=== PATIENT | female | born 1965 | race Two or more races ===

== ENCOUNTER 2016-11-24 12:32 | Emergency (ER) | payer OTHER ==
[~2016-11-24] VITALS: Ht 160 cm; Wt 117.9 kg
[2016-11-24] MEDS ORDERED: PANTOPRAZOLE 40 MG/10 ML VIAL IV STA (13:05)
[2016-11-24] MEDS ORDERED: SODIUM CHLORIDE 0.9% 500 ML IVB ONE (13:05)
[2016-11-24] MEDS ORDERED: MORPHINE SULF INJ 2 MG/ML SYRINGE 1ML ONE (13:08)
[2016-11-24] MEDS ORDERED: ONDANSETRON HCL 4 MG/2 ML VIAL IV ONE (13:15)
[2016-11-24] MEDS ORDERED: MORPHINE SULFATE 4 MG/ML SYRG IV ONE (13:15)
[2016-11-24 14:13] LABS: Basophils # (auto) 0 uL; Basophils % (auto) 0.5 % (0.0-2.0); Eosinophils # (auto) 0.1 uL; Eosinophils % (auto) 1.7 % (0.0-7.0); Hemoglobin 14.1 g/dL (12.2-16.2); Lymphocytes # (auto) 1.3 uL; Lymphocytes % (auto) 17.8 % (10.0-50.0); Mean Corpuscular Hemoglobin 30.4 pg (28.0-32.0); Mean Corpuscular Hgb Conc. 33.7 g/dL (32.0-36.0); Mean Corpuscular Volume 90.4 fL (80.0-100.0); Mean Platelet Volume 7.9 fL (7.4-10.4); Monocytes # (auto) 0.4 uL; Monocytes % (auto) 5.3 % (0.0-12.0); Neutrophils # (auto) 5.4 uL; Neutrophils % (auto) 74.7 % (37.0-80.0); Platelet Count (auto) 231 10^3/uL (140-450); Red Cell Distribution Width 15.8 % (11.6-16.0); White Blood Cell 7.3 10^3/uL (4.4-10.8)
[2016-11-24 14:28] LABS: Albumin 3.2 g/dL (3.4-5.0); Amylase 48 U/L (25-115); Anion Gap 10 (5-15); Aspartate Aminotransferase 35 U/L (15-37); BUN/Creatinine Ratio 14.8; Blood Urea Nitrogen 17 mg/dL (7-18); Calcium 8.4 mg/dL (8.5-10.1); Carbon Dioxide 21 mmol/L (21-32); Chloride 112 mmol/L (98-107); GFR African American 63 mL/min; GFR Non-African American 52 mL/min; Glucose 156 mg/dL (74-106); Magnesium 2.1 mg/dL (1.6-2.6); Potassium 3.8 mmol/L (3.5-5.1); Sodium 143 mmol/L (136-145)
[2016-11-24 14:33] LABS: Alkaline Phosphatase 97 U/L (45-117); Bilirubin, Total 0.4 mg/dL (0.2-1.0); Total Protein 7.4 g/dL (6.4-8.2)
[2016-11-24 15:57] VITALS: BP 146/77
== END 2016-11-24 15:56 | disposition home or self-care (01) ==
LOC: ER 12:32
DX: R10.84 Generalized abdominal pain (principal); Z90.49 Acquired absence of other specified parts of digestive tract
CPT/HCPCS: 36415; 74176; 80053; 82150; 83690; 83735; 84484; 85025; 93005; 94761; 96361; 96374; 96375; 99285; C9113; J2270; J2405; J7030

== ENCOUNTER 2017-06-27 07:08 | Emergency (ER) | payer OTHER ==
[~2017-06-27] VITALS: Ht 162.6 cm; Wt 136.1 kg
[2017-06-27 07:38] VITALS: BP 130/60
[2017-06-27 07:54] LABS: Basophils # (auto) 0.1 uL; Eosinophils # (auto) 0.1 uL; Eosinophils % (auto) 2.9 % (0.0-7.0); Hematocrit 45.7 % (36.0-46.0); Hemoglobin 15.6 g/dL (12.2-16.2); Lymphocytes # (auto) 1.6 uL; Lymphocytes % (auto) 31.1 % (10.0-50.0); Mean Corpuscular Hemoglobin 31.8 pg (28.0-32.0); Mean Corpuscular Hgb Conc. 34.1 g/dL (32.0-36.0); Mean Corpuscular Volume 93.1 fL (80.0-100.0); Monocytes # (auto) 0.3 uL; Monocytes % (auto) 5.8 % (0.0-12.0); Neutrophils % (auto) 59.2 % (37.0-80.0); Nucleated Red Blood Cells % 0.1 %; Platelet Count (auto) 244 10^3/uL (140-450); Red Blood Cells 4.91 10^6/uL (4.0-5.20); Red Cell Distribution Width 13.8 % (11.8-14.3); White Blood Cell 5.1 10^3/uL (4.4-10.8)
[2017-06-27 08:14] LABS: Albumin 3.6 g/dL (3.4-5.0); BUN/Creatinine Ratio 16.2; Bilirubin, Total 0.6 mg/dL (0.2-1.0); Calcium 8.8 mg/dL (8.5-10.1); Potassium 4.2 mmol/L (3.5-5.1); Total Protein 8.2 g/dL (6.4-8.2)
== END 2017-06-27 09:33 | disposition home or self-care (01) ==
LOC: ER 07:08
DX: R10.84 Generalized abdominal pain (principal); Z90.49 Acquired absence of other specified parts of digestive tract
CPT/HCPCS: 36415; 74176; 80053; 83690; 85025; 93005

== ENCOUNTER 2019-01-27 11:13 | Inpatient (IN) | payer OTHER ==
[~2019-01-27] VITALS: Ht 162.6 cm; Wt 139.2 kg
[2019-01-27] MEDS ORDERED: ONDANSETRON HCL 4 MG/2 ML VIAL IV ONE (11:30)
[2019-01-27 11:44] LABS: Basophils # (auto) 0.1 uL; Basophils % (auto) 0.6 % (0.0-2.0); Eosinophils # (auto) 0 uL; Eosinophils % (auto) 0.4 % (0.0-7.0); Hematocrit 48.5 % (36.0-46.0); Hemoglobin 16.5 g/dL (12.2-16.2); Lymphocytes # (auto) 2.3 uL; Lymphocytes % (auto) 21.9 % (10.0-50.0); Mean Corpuscular Hemoglobin 31.7 pg (28.0-32.0); Mean Corpuscular Hgb Conc. 33.9 g/dL (32.0-36.0); Mean Corpuscular Volume 93.5 fL (80.0-100.0); Monocytes # (auto) 0.5 uL; Monocytes % (auto) 4.6 % (0.0-12.0); Neutrophils # (auto) 7.6 uL; Neutrophils % (auto) 72.5 % (37.0-80.0); Platelet Count (auto) 280 10^3/uL (140-450); Red Blood Cells 5.19 10^6/uL (4.0-5.20); Red Cell Distribution Width 14.4 % (11.8-14.3); White Blood Cell 10.5 10^3/uL (4.4-10.8)
[2019-01-27 12:11] LABS: Albumin 3.8 g/dL (3.4-5.0); Anion Gap 10 (5-15); Blood Urea Nitrogen 19 mg/dL (7-18); Calcium 9.7 mg/dL (8.5-10.1); Carbon Dioxide 21 mmol/L (21-32); Chloride 108 mmol/L (98-107); Glucose 187 mg/dL (74-106); Potassium 4.2 mmol/L (3.5-5.1); Sodium 139 mmol/L (136-145)
[2019-01-27 12:18] LABS: Alanine Aminotransferase 81 U/L (13-56); Alkaline Phosphatase 104 U/L (45-117); Aspartate Aminotransferase 54 U/L (15-37); Bilirubin, Total 0.7 mg/dL (0.2-1.0); GFR African American 65 mL/min; GFR Non-African American 54 mL/min; Total Protein 8.7 g/dL (6.4-8.2)
[2019-01-27] MEDS ORDERED: MORPHINE SULF INJ 2 MG/ML SYRINGE 1ML IV ONE (12:30)
[2019-01-27] MEDS ORDERED: HYDROmorphone HCL 2 MG/ML VL IV ONE (13:45)
[2019-01-27] MEDS ORDERED: SODIUM CHLORIDE 0.9% 1,000 ML IV ONE ×2 (13:45)
[2019-01-27] MEDS ORDERED: cefTRIAXone 1GM/50ML D5W 50 ML IV ONE (13:45)
[2019-01-27] MEDS ORDERED: PROMETHAZINE HCL 25 MG/ML 1ML IV ONE (13:45)
[2019-01-27] MEDS ORDERED: MORPHINE SULF INJ 2 MG/ML SYRINGE 1ML IV PRN (15:30)
[2019-01-27] MEDS ORDERED: SOD CHL 0.9%/ KCL 20MEQ 1,000 ML IV SCH (15:30)
[2019-01-27] MEDS ORDERED: NITROGLYCERIN 0.4 MG SL TAB SL PRN (15:30)
[2019-01-27 15:45] LABS: Cholesterol 236 mg/dL (< 200)
[2019-01-27 15:48] LABS: HDL Cholesterol 46 mg/dL (40-59); LDL Cholesterol 155 mg/dL (< 100); Triglycerides 246 mg/dL (< 150)
[2019-01-27 15:49] LABS: INR 1.01 (0.9-1.15); Partial Thromboplastin Time 24.5 sec (23.64-32.05)
[2019-01-27] MEDS: SOD CHL 0.9%/ KCL 20MEQ 1,000 ML IV SCH (16:08)
[2019-01-27] MEDS: MORPHINE SULF INJ 2 MG/ML SYRINGE 1ML IV PRN ×2 (16:58→20:28)
--- NOTE | 2019-01-27 17:55 | NUR ---
[facility] ADMIT FROM ER Patient admitted to [facility] after SBAR received from SATISH Vidales. Patient and daughters oriented to primary RN, unit, room, bed, unit policies regarding patient and encouraged to call if something is needed. No S/S of distress/SOB, c/o of abdominal pain 2/10 on adult pain scale. NG tube to left nares is intact. Bed in lowest, locked position with side rails up x2 and call light within reach. All questions and concerns addressed, patient verbalized understanding.Will continue to monitor Q1hr/PRN.
[2019-01-27] MEDS ORDERED: OMEP20TA PO (18:32)
--- NOTE | 2019-01-27 19:10 | NUR ---
Opening shift note Assumed care of patient, with family at the bedside. Patient is A&O x4. Currently on 2L via NC with no s/s of SOB or distress. Reports 6/10 abdominal pain. Pain management options discussed with patient. Informed patient and family on POC. Patient is ambulatory with minimal assistance at baseline. NG tube in left nare; placement verified via auscultation. Attached to wall suction-LIS. Patient to be kept NPO for pending procedure with Dr. Alcantara 01/28/2019. Bed is in low locked position with side rails up x2. Call light is within reach and patietn encouraged to call for assistance when needed. Will continue to monitor for changes PRN.
[2019-01-27 20:00] VITALS: BP 114/55
[2019-01-27] MEDS: ONDANSETRON HCL 4 MG/2 ML VIAL IV PRN (20:29)
[2019-01-27] MEDS: metroNIDAZOLE 500MG/100ML 100 ML IV SCH (21:41)
[2019-01-27] MEDS: FAMOTIDINE (10MG/ML) 2ML VL IV SCH (21:44)
[2019-01-27 22:00] VITALS: BP 114/55
[2019-01-28] MEDS: MORPHINE SULF INJ 2 MG/ML SYRINGE 1ML IV PRN ×3 (00:11→20:57)
[2019-01-28] MEDS: SOD CHL 0.9%/ KCL 20MEQ 1,000 ML IV SCH ×3 (01:45→21:13)
--- NOTE | 2019-01-28 03:55 | NUR ---
Assisted patient to restroom. Urine sample collected and sent to lab.
[2019-01-28 04:51] VITALS: BP 107/58
[2019-01-28] MEDS: metroNIDAZOLE 500MG/100ML 100 ML IV SCH ×3 (06:24→21:54)
[2019-01-28 06:48] LABS: Urine Bacteria FEW /hpf (None Seen); Urine Blood Negative /uL (Negative); Urine Mucus FEW (None Seen); Urine Specific Gravity 1.022 (1.001-1.035); Urine WBC 2 /hpf (0 - 5)
--- NOTE | 2019-01-28 07:01 | NUR ---
Ng output 150ml yellow fluid removed through Ng tube this shift.
--- NOTE | 2019-01-28 07:37 | NUR ---
OPENING NOTE Assumed care of patient from NOC RN, Dawna. Patient awake and alert with no S/S of distress/SOB or pain. Instructed on POC and to call for assist PRN, verbalized understanding. NG tube intact, suction tube with 150mls of greenish output. Bed in lowest, locked position with side rails up x2 and call light within reach. Will continue to monitor for changes Q1hr and PRN.
[2019-01-28] MEDS: ONDANSETRON HCL 4 MG/2 ML VIAL IV PRN (08:36)
[2019-01-28 09:00] VITALS: BP 136/64
[2019-01-28] MEDS: FAMOTIDINE (10MG/ML) 2ML VL IV SCH ×2 (11:05→21:55)
[2019-01-28] MEDS: LEVOFLOXACIN 500MG 100 ML IV SCH (11:05)
--- NOTE | 2019-01-28 11:40 | NUR ---
OFF UNIT Patient taken off unit via bed for scheduled surgical procedure, family at bedside. No S/S of distress noted.
[2019-01-28] MEDS ORDERED: fentaNYL CITRATE 100 MCG/2 ML VL ONE (11:55)
[2019-01-28] MEDS ORDERED: PROPOFOL 10 MG/ML 20 ML IV ONE (11:55)
[2019-01-28] MEDS ORDERED: SODIUM CHLORIDE LOCK 10 ML ONE (11:55)
[2019-01-28] MEDS ORDERED: ROCURONIUM 10MG/ML 10ML VIAL IV ONE (11:55)
[2019-01-28] MEDS ORDERED: METOCLOPRAMIDE HCL 5MG/ml INJ 2ml VIAL ONE (11:55)
[2019-01-28] MEDS ORDERED: MEPERIDINE HCL (25 MG/ML) 1ML VIAL ONE (11:55)
[2019-01-28] MEDS ORDERED: ONDANSETRON HCL 4 MG/2 ML VIAL ONE (11:55)
[2019-01-28] MEDS ORDERED: MIDAZOLAM HCL 1MG/1ML-2 ML VIAL ONE (11:55)
[2019-01-28] MEDS ORDERED: SUCCINYLCHOLINE CHLORIDE 20 MG/ML 10ML VIAL IV ONE (12:54)
[2019-01-28] MEDS ORDERED: POVIDONE IODINE 5% TOPICAL CREAM TOP ONE (12:57)
[2019-01-28] MEDS ORDERED: ceFAZolin 1GM/50ML 50 ML IV ONE (13:03)
[2019-01-28] MEDS ORDERED: NEOSTIGMINE 1 MG/ML INJ (10mg/10ML VIAL) ONE (13:23)
[2019-01-28] MEDS ORDERED: GLYCOPYRROLATE 0.2 MG/ML 1ML VIAL ONE (13:23)
[2019-01-28] MEDS ORDERED: BUPIVACAINE W/ EPINEPH 0.25% INJ 50ML MDV ONE (13:31)
[2019-01-28] MEDS ORDERED: MORPHINE SULFATE 4 MG/ML SYR/VIAL IV PRN (13:45)
[2019-01-28] MEDS ORDERED: fentaNYL CITRATE 100 MCG/2 ML VL IV PRN (13:45)
[2019-01-28] MEDS ORDERED: KETOROLAC TROMETH 30 MG/ML 1ML VIAL IV ONE (13:45)
[2019-01-28] MEDS ORDERED: METOCLOPRAMIDE HCL 5MG/ml INJ 2ml VIAL IV PRN (13:45)
[2019-01-28] MEDS: HYDROmorphone HCL 2 MG/ML VL IV PRN ×2 (15:10→15:20)
--- NOTE | 2019-01-28 16:16 | NUR ---
RETURN TO UNIT Patient returned to unit via bed. Medial abdominal dressing is clean/dry/intact and abdominal binder is in place. Patient resting in bed with no S/S of distress noted. Nasal cannula in place, connected to 3L O2 and Reid catheter intact/patent and hung below bed. NG tube set to low intermittent suction. Will continue to monitor Q1hr/PRN.
[2019-01-28 17:00] VITALS: BP 122/65
--- NOTE | 2019-01-28 19:05 | NUR ---
NG TUBE 50mls of greenish drainage noted in canister.
--- NOTE | 2019-01-28 19:22 | NUR ---
CLOSING NOTE Endorsed care of patient to NOC Dawna COVARRUBIAS.
[2019-01-28 20:00] VITALS: BP 113/69
--- NOTE | 2019-01-28 20:00 | NUR ---
Opening shift note Assumed care of patient, with family at the bedside. Patient is A&O x4. Currently on 2L via NC with no s/s of SOB or distress. denies abdominal pain at this time. Pain management options discussed with patient. NG tube in left nare; placement verified via auscultation. Attached to wall suction-LIS. Patient to be kept NPO per orders. Medial abdominal surgical dressing is CDI; abdominal binder in place. SCDs on BLE. Reid catheter in place and patent; bag hung below the level of the bladder and draining clear yellow urine to gravity. Bed is in low locked position with side rails up x2. Call light is within reach and patient encouraged to call for assistance when needed. Will continue to monitor for changes PRN.
--- NOTE | 2019-01-28 20:27 | NUR ---
IV Swelling of right hand noted. Patient reports "tightness" in area. IV infusion stopped.
--- NOTE | 2019-01-28 20:45 | NUR ---
IV insertion IV access obtained, via clean sterile technique by inserting 22 gauge catheter at left hand after 1 attempt. IV secured properly. No trauma to site. Patient tolerated well.
--- NOTE | 2019-01-28 20:55 | NUR ---
IV removal IV to left hand DC'd with clean sterile technique, catheter fully intact. Pressure dressing applied to site. Patient tolerated well.
[2019-01-28 22:00] VITALS: BP 113/69
[2019-01-29 05:00] VITALS: BP 127/59
[2019-01-29] MEDS: metroNIDAZOLE 500MG/100ML 100 ML IV SCH ×3 (05:31→21:00)
[2019-01-29 06:10] LABS: Basophils # (auto) 0 uL; Basophils % (auto) 0.5 % (0.0-2.0); Eosinophils # (auto) 0.1 uL; Eosinophils % (auto) 0.9 % (0.0-7.0); Hematocrit 42.2 % (36.0-46.0); Hemoglobin 14.1 g/dL (12.2-16.2); Lymphocytes % (auto) 14.4 % (10.0-50.0); Mean Corpuscular Hemoglobin 31.8 pg (28.0-32.0); Mean Corpuscular Hgb Conc. 33.4 g/dL (32.0-36.0); Mean Corpuscular Volume 95.1 fL (80.0-100.0); Monocytes # (auto) 0.5 uL; Monocytes % (auto) 7.7 % (0.0-12.0); Neutrophils # (auto) 5.5 uL; Neutrophils % (auto) 76.5 % (37.0-80.0); Nucleated Red Blood Cells % 0.1 %; Platelet Count (auto) 198 10^3/uL (140-450); Red Blood Cells 4.43 10^6/uL (4.0-5.20); Red Cell Distribution Width 14.4 % (11.8-14.3); White Blood Cell 7.2 10^3/uL (4.4-10.8)
[2019-01-29 06:29] LABS: Calcium 8.3 mg/dL (8.5-10.1); Potassium 4.2 mmol/L (3.5-5.1)
--- NOTE | 2019-01-29 06:49 | NUR ---
NG output No output from NG tube this shift. Placement verified via auscultation.
--- NOTE | 2019-01-29 07:30 | NUR ---
About 200 ml of brown fluid noted in the suction canister.
--- NOTE | 2019-01-29 07:30 | NUR ---
NGT output at 500 ml on the suction container at this time. Addendum: 01/29/19 at 1642 by Rachel Fox RN 200 ML ONLY
[2019-01-29] MEDS: SOD CHL 0.9%/ KCL 20MEQ 1,000 ML IV SCH (08:20)
[2019-01-29 09:00] VITALS: BP 111/56
--- NOTE | 2019-01-29 09:45 | NUR ---
Family at bedside.
[2019-01-29] MEDS: FAMOTIDINE (10MG/ML) 2ML VL IV SCH ×2 (10:09→21:00)
[2019-01-29] MEDS: MORPHINE SULF INJ 2 MG/ML SYRINGE 1ML IV PRN ×3 (10:09→17:53)
[2019-01-29] MEDS: LEVOFLOXACIN 500MG 100 ML IV SCH (10:09)
--- NOTE | 2019-01-29 10:09 | NUR ---
Patient stated her pain level at 10/10 at this time, she has headache. Morphine Sulf Inj 2 mg given for severe pain as ordered.
[2019-01-29 13:00] VITALS: BP 92/51
--- NOTE | 2019-01-29 13:58 | NUR ---
Patient stated her pain level at 10/10 at this time. Morphine Sulf Inj 2 mg given for pain as ordered. Family at bedside.
--- NOTE | 2019-01-29 14:09 | NUR ---
Dr. Parkinson called back. made aware patient and family want to know when is the NG Tube will be removed, when is the patient allowed to eat. Dr. Parkinson said she will come to see the patient today, the surgeon has to decide when is the NGT coming out. Patient and family made aware.
--- NOTE | 2019-01-29 14:18 | NUR ---
Nutrition Assessment Notes please see attached link for complete assessment Est. Needs ABW 100 [id number] kcal (15-17 kcal/kgBW), 100-111 gms pro (1.0-1.1 gms/kgBW). Will continue to monitor pertinent labs and reassess nutrient need prn Addendum: 01/29/19 at [address] Amended: Links added.
--- NOTE | 2019-01-29 15:05 | NUR ---
Dr. Parkinson at bedside. ordered to follow up with Dr. Alcantara if patient's NGT will be removed, if patient okay to be started on Clear Liquids.
--- NOTE | 2019-01-29 15:08 | NUR ---
BP = 105/48. Dr. Parkinson made aware.
--- NOTE | 2019-01-29 16:00 | NUR ---
On NGT. About 200 ml of brown fluid noted in the suction canister. No increase on the amount since this morning.
--- NOTE | 2019-01-29 16:06 | NUR ---
Informed Dr. Alcantara that patient still on NPO, on NGT, has not passed gas. Dr. Parkinson asked if it's okay to remove the NGT, if patient will have diet order. Waiting for Dr. Alcantara to call back.
--- NOTE | 2019-01-29 16:34 | NUR ---
Dr. Alcantara ordered to keep NGT, keep NPO.
--- NOTE | 2019-01-29 16:56 | NUR ---
Called Radiology for chest portable for NGT placement.
[2019-01-29 17:00] VITALS: BP 104/39
[2019-01-29] MEDS ORDERED: FUROSEMIDE 20 MG/2 ML VIAL IV ONE (17:15)
--- NOTE | 2019-01-29 17:40 | NUR ---
NG Tube in satisfactory position (after repositioning at 60). Placed on low intermittent suction as ordered.
[2019-01-29] MEDS: D5W/LACTATED RINGERS 1,000 ML IV SCH (17:53)
--- NOTE | 2019-01-29 17:53 | NUR ---
Morphine Sulf Inj given for pain as ordered. Family at bedside.
[2019-01-29 22:46] VITALS: BP 116/73
[2019-01-30] MEDS: MORPHINE SULF INJ 2 MG/ML SYRINGE 1ML IV PRN ×3 (00:55→16:40)
[2019-01-30 05:29] VITALS: BP 124/61
[2019-01-30] MEDS: metroNIDAZOLE 500MG/100ML 100 ML IV SCH ×3 (05:45→21:27)
--- NOTE | 2019-01-30 06:11 | NUR ---
NGT OUTPUT 100ML, GREENISH COLOR
[2019-01-30 06:54] LABS: Basophils # (auto) 0 uL; Basophils % (auto) 0.5 % (0.0-2.0); Eosinophils # (auto) 0.1 uL; Eosinophils % (auto) 1.8 % (0.0-7.0); Hemoglobin 14.5 g/dL (12.2-16.2); Lymphocytes # (auto) 1.1 uL; Lymphocytes % (auto) 17.5 % (10.0-50.0); Mean Corpuscular Hemoglobin 32.5 pg (28.0-32.0); Mean Corpuscular Hgb Conc. 34.5 g/dL (32.0-36.0); Mean Corpuscular Volume 94.1 fL (80.0-100.0); Monocytes # (auto) 0.6 uL; Monocytes % (auto) 8.5 % (0.0-12.0); Neutrophils # (auto) 4.7 uL; Neutrophils % (auto) 71.7 % (37.0-80.0); Platelet Count (auto) 198 10^3/uL (140-450); Red Blood Cells 4.46 10^6/uL (4.0-5.20); Red Cell Distribution Width 14.2 % (11.8-14.3); White Blood Cell 6.5 10^3/uL (4.4-10.8)
--- NOTE | 2019-01-30 07:15 | NUR ---
NGT output at 100 ml. Greenish fluid noted.
[2019-01-30 07:18] LABS: Calcium 8.7 mg/dL (8.5-10.1); Potassium 3.7 mmol/L (3.5-5.1)
[2019-01-30 07:20] LABS: BUN/Creatinine Ratio 15.2
--- NOTE | 2019-01-30 07:30 | NUR ---
Opening Shift Note Assumed care of patient, awake and alert. No S/S of distress/SOB. Patient is on 2L of oxygen per nasal cannula as well as a NG to to left nare set to low continuous suction. Instructed on POC and to callfor assist PRN, will continue to monitor for changes Q1hr and PRN. Addendum: 01/30/19 at 1618 by Rubi Rhodes RN RN Low intermittent suction
[2019-01-30 08:00] VITALS: BP 119/68
[2019-01-30 09:00] VITALS: BP 119/68
--- NOTE | 2019-01-30 09:03 | NUR ---
Patient stated her stomach hurts. Morphine Sulf Inj 2 mg given for pain as ordered. Family at bedside.
--- NOTE | 2019-01-30 10:00 | NUR ---
Unit SecRosa Sadelr attempted to page/call [facility] office for Urology Consult, unsuccessful, phone not working.
--- NOTE | 2019-01-30 10:15 | NUR ---
BILLY Manriquez came over, asked for the patient to be unhooked from the NGT and IV fluids for patient's physical therapy.
--- NOTE | 2019-01-30 10:30 | NUR ---
Patient walking on the hallway using walker, being assisted by BILLY Manriquez.
[2019-01-30] MEDS: FAMOTIDINE (10MG/ML) 2ML VL IV SCH ×2 (11:17→21:27)
[2019-01-30] MEDS: FUROSEMIDE 20 MG/2 ML VIAL IV SCH (11:17)
[2019-01-30] MEDS: LEVOFLOXACIN 500MG 100 ML IV SCH (11:18)
--- NOTE | 2019-01-30 12:25 | NUR ---
IV removal. IV DC'd with clean sterile technique, 22g catheter fully intact. Pressure dressing applied to site. Patient tolerated well.
--- NOTE | 2019-01-30 12:32 | NUR ---
IV insertion (R) FA IV access obtained, via clean sterile technique by inserting a 20g gauge catheter at the right FA after 1 attempt. IV secured properly. No trauma to site. Patient tolerated procedure well.
[2019-01-30 13:00] VITALS: BP 109/59
[2019-01-30] MEDS: D5W/LACTATED RINGERS 1,000 ML IV SCH (16:39)
[2019-01-30 17:00] VITALS: BP 128/51
--- NOTE | 2019-01-30 18:15 | NUR ---
NG output 125 ml of green fluid noted
--- NOTE | 2019-01-30 18:45 | NUR ---
Dr. Fernández at bedside. ordered to let the patient ambulate tomorrow morning. Patient had physical therapy this afternoon.
--- NOTE | 2019-01-30 21:17 | NUR ---
SPOKE WITH DR. SAUCEDA (UROLOGIST), ASKING INFORMATION REGARDING PATIENT, ABDOMINAL CT RESULTS READ TO DR SAUCEDA, INFORMED HIM THAT PATIENT IS HERE FOR SBO 2/2 VENTRAL HERNIA, S/P VENTRAL HERNIA REPAIR, PATIENT IS STILL WITH NGT, NO FLATUS AND BOWEL SOUNDS, WITH MONTERO CATHETER AND ADEQUATE URINE OUTPUT. PER DR. SAUCEDA, WILL SEE PATIENT BY TOMORROW OR FRIDAY. THERE IS REALLY NOTHING ELSE TO BE DONE OF NOW AND WILL FOLLOW PATIENT OUTPATIENT.
[2019-01-30 22:00] VITALS: BP 127/68
--- NOTE | 2019-01-31 02:25 | NUR ---
PATIENT STATED, SHE PASSED GAS.
[2019-01-31] MEDS: metroNIDAZOLE 500MG/100ML 100 ML IV SCH ×3 (05:35→21:02)
[2019-01-31 05:49] VITALS: BP 101/76
--- NOTE | 2019-01-31 06:59 | NUR ---
NGT OUTPUT OUTPUT FOR THE LAST 12 HOURS IS 125ML, GREENISH IN COLOR.
--- NOTE | 2019-01-31 07:30 | NUR ---
Opening Shift Note Assumed care of patient, who is alert and oriented x4. No S/S of distress/SOB or pain. Bed is in the lowest position with 2x side rails up for safety. Call light is within reach. Instructed on POC and to call for assist PRN, will continue to monitor for changes Q1hr and PRN.
--- NOTE | 2019-01-31 07:56 | NUR ---
Informed Dr. Alcantara that patient is passing gas, ambulating with walker, NGT output at 300 ml of greenish fluid noted. Patient is on NPO. Waiting for MD to call back.
[2019-01-31 08:00] VITALS: BP 116/71
[2019-01-31] MEDS: MORPHINE SULF INJ 2 MG/ML SYRINGE 1ML IV PRN ×4 (08:37→21:29)
[2019-01-31 09:00] VITALS: BP 116/71
[2019-01-31] MEDS: LEVOFLOXACIN 500MG 100 ML IV SCH (09:56)
[2019-01-31] MEDS: FAMOTIDINE (10MG/ML) 2ML VL IV SCH ×2 (09:56→21:03)
[2019-01-31] MEDS: FUROSEMIDE 20 MG/2 ML VIAL IV SCH (09:59)
--- NOTE | 2019-01-31 10:35 | NUR ---
Physical Therapy Patient ambulating in the hallway using walker, being assisted by RPT.
--- NOTE | 2019-01-31 11:34 | NUR ---
Dr. Alcantara ordered to discontinue NGT, give patient sips of clear liquids.
--- NOTE | 2019-01-31 11:40 | NUR ---
NGT D/C'd Discontinued NGT from Samuel diallo as per MD order. Total output was 350 ml of green fluid. Patient tolerated well, will continue to monitor.
--- NOTE | 2019-01-31 11:41 | NUR ---
Instructions given to patient to have sips of clear liquids slowly to prevent upset stomach.
--- NOTE | 2019-01-31 12:20 | NUR ---
Dr. Fernández made aware patient is passing gas, ambulating with walker, Dr. Alcantara ordered to discontinue the NGT, give patient sips of clear liquids. Dr. Fernández ordered to remove the Erid catheter.
--- NOTE | 2019-01-31 12:30 | NUR ---
Patient no complaints of nausea/vomiting after having jello and sips of water.
[2019-01-31 13:00] VITALS: BP 135/67
--- NOTE | 2019-01-31 13:40 | NUR ---
D/C'd lagunas Order to discontinue lagunas catheter. Lagunas dc'd with clean technique following deflation of balloon. Patient tolerated well with no complaints of pain. Will continue to monitor.
[2019-01-31 17:00] VITALS: BP 123/74
[2019-01-31] MEDS: D5W/LACTATED RINGERS 1,000 ML IV SCH (17:06)
--- NOTE | 2019-01-31 17:55 | NUR ---
Patient ambulating Patient ambulating in the hallway using a walker, being assisted by both son and daughter.
--- NOTE | 2019-01-31 18:10 | NUR ---
First void Patient's first urine void since d/c of lagunas catheter. Urine was yellow, clear and no sediment noted. Patient did not complain of any discomfort during urination. Will continue to monitor.
[2019-01-31 22:00] VITALS: BP 120/56
[2019-02-01] MEDS: metroNIDAZOLE 500MG/100ML 100 ML IV SCH (05:21)
[2019-02-01 05:47] VITALS: BP 136/73
--- NOTE | 2019-02-01 07:29 | NUR ---
Opening Shift Note: Assumed care of patient, awake and alert. No S/S of distress/SOB or pain. Bed in lowest locked position, side rail up x 2, call light within reach. Patient instructed on POC and to call for assist PRN, will continue to monitor for changes Q1hr and PRN.
[2019-02-01 09:00] VITALS: BP 103/67
--- NOTE | 2019-02-01 10:05 | NUR ---
Patient ambulated halls with Physical therapy. Patient tolerated well. Will continue to monitor.
[2019-02-01] MEDS: FAMOTIDINE (10MG/ML) 2ML VL IV SCH (10:09)
[2019-02-01] MEDS: LEVOFLOXACIN 500MG 100 ML IV SCH (10:09)
[2019-02-01] MEDS: FUROSEMIDE 20 MG/2 ML VIAL IV SCH (10:10)
[2019-02-01] MEDS ORDERED: FUROSEMIDE 40 MG/4 ML VIAL ONE (11:04)
[2019-02-01] MEDS ORDERED: FUROSEMIDE 40 MG/4 ML VIAL IV ONE (11:45)
--- NOTE | 2019-02-01 11:47 | NUR ---
Dr. Parkinson at bedside. Discussed POC with patient. Patient verbally agreed. Will continue to monitor.
[2019-02-01 13:00] VITALS: BP 125/64
[2019-02-01 13:42] LABS: Basophils # (auto) 0 uL; Basophils % (auto) 0.6 % (0.0-2.0); Eosinophils # (auto) 0.2 uL; Hematocrit 45.5 % (36.0-46.0); Hemoglobin 15.6 g/dL (12.2-16.2); Lymphocytes # (auto) 1.2 uL; Lymphocytes % (auto) 18.1 % (10.0-50.0); Mean Corpuscular Hemoglobin 31.9 pg (28.0-32.0); Mean Corpuscular Hgb Conc. 34.2 g/dL (32.0-36.0); Mean Corpuscular Volume 93.2 fL (80.0-100.0); Monocytes # (auto) 0.5 uL; Monocytes % (auto) 8.3 % (0.0-12.0); Neutrophils # (auto) 4.6 uL; Platelet Count (auto) 261 10^3/uL (140-450); Red Blood Cells 4.89 10^6/uL (4.0-5.20); White Blood Cell 6.6 10^3/uL (4.4-10.8)
[2019-02-01 14:35] LABS: Albumin 3.1 g/dL (3.4-5.0); Calcium 9.2 mg/dL (8.5-10.1); Potassium 3.3 mmol/L (3.5-5.1)
[2019-02-01 14:38] LABS: BUN/Creatinine Ratio 19.5; Bilirubin, Total 0.6 mg/dL (0.2-1.0)
--- NOTE | 2019-02-01 15:18 | NUR ---
Nutrition Follow-up Notes Wt.: 142.4 kg Pt was sleeping with no family by bedside. per reocrds pt with renal calculi. pt is currently on clear liq diet with adequate Po of 75% x 3 per RN doc Est. Needs ABW 100 [id number] kcal (15-17 kcal/kgBW), 100-111 gms pro (1.0-1.1 gms/kgBW). Will continue to monitor pertinent labs and reassess nutrient need prn Labs: CREAT 1.12 H, GLU 125 H Skin: Onesimo scale 20 low risk skin intact per RN doc GI: Pt has no BM reported per special services director. PES: Altered nutrition related lab values r/t current/chronic medical condition aeb elev lipids, hypocalcemia, elev creat Decreased nutrient needs r/t adiposity aeb pt`s high BMI of 55.6 kgm2 Will continue to monitor PO intake, skin status, pertinent labs and weight trend. F/u in 2 to 3 days. Rec.: 1.) advance diet as medically feasible. 2) consider PN support to meet > 75% of needs if pt continues to be NPO and GI is not accessible. 3) refer to [facility] dietitian on DC
[2019-02-01 17:00] VITALS: BP 113/61
--- NOTE | 2019-02-01 18:15 | NUR ---
Patient ambulated to the bathroom. Patient tolerated well. Will continue to monitor.
--- NOTE | 2019-02-01 19:20 | NUR ---
Closing note: Patient asleep in bed. No signs of distress, SOB or pain at this time. Report given to NOC SATISH Saini
[2019-02-01 22:00] VITALS: BP 105/75
[2019-02-02 05:57] VITALS: BP 113/62
[2019-02-02 08:00] VITALS: BP 106/69
[2019-02-02 09:14] VITALS: BP 106/69
[2019-02-02] MEDS ORDERED: ENOXAPARIN SOD 40 MG/0.4 ML SYRINGE SC SCH (10:00)
[2019-02-02 12:00] VITALS: BP 109/66
[2019-02-02] MEDS ORDERED: CEPH-37 PO (12:04)
--- NOTE | 2019-02-02 16:28 | NUR ---
Discharge planning per SS consult, patient has orders for a walker. referral sent to [facility]. Received a follow up call from Shane at [facility] and was advised that the walker will be delivered to the bedside between 5-7pm.
--- NOTE | 2019-02-02 16:32 | NUR ---
Walker will be delivered to bedside between 5-7pm, per [facility] rep. Addendum: 02/02/19 at 1633 by RON ALLAN SS Amended: Links added.
--- NOTE | 2019-02-02 17:13 | NUR ---
assessment Patient is a 53 year old female who is alert and oriented. Patients cognitive abilities are intact. Prior to admission patient lived home with family and functioned independently. Patient informed me she is able to care for her own ADLs. Per patient she will return home to her prior living arrangements post discharge and family will transport her home. Patient informed me her PCP is Dr Huntley. Patient informed me she has no DME. Patient informed me she has been unsteady on her feet lately. Patient may benefit from a fww on discharge. I informed patient she has a right to speak to a secondary social studies teacher regarding all care. I informed patient she has a right to participate in any and all discharge planning. Patient does not have a POA and advanced directive. I have offered patient information on POA and advanced directives. I informed the patient the advantages and benefits of having an Advanced Directive. Patient verbalized understanding and agreed to discharge plan. Addendum: 02/02/19 at 1714 by Essence ANDINO Amended: Links added.
[2019-02-02 18:05] VITALS: BP 109/66
== END 2019-02-02 18:55 | disposition home or self-care (01) | DRG 227 ==
LOC: ER 11:13 → OVERFLOW 11:14 → EAST 17:43
PROVIDERS: ADMIT Nurse Practitioner Acute Care; ATTEND Internal Medicine Nephrology
PROC: 0DN80ZZ Release Small Intestine, Open Approach (ICD-10-PCS; 2019-01-28)
PROC: 0WQF0ZZ Repair Abdominal Wall, Open Approach (ICD-10-PCS; principal; 2019-01-28 13:04)
DX: K43.6 Other and unspecified ventral hernia with obstruction, without gangrene (principal); E11.22 Type 2 diabetes mellitus with diabetic chronic kidney disease; E66.01 Morbid (severe) obesity due to excess calories; N18.3 Chronic kidney disease, stage 3 (moderate); K76.0 Fatty (change of) liver, not elsewhere classified; E86.0 Dehydration; N20.0 Calculus of kidney; N26.1 Atrophy of kidney (terminal); Z87.442 Personal history of urinary calculi; Z82.49 Family history of ischemic heart disease and other diseases of the circulatory system; Z83.3 Family history of diabetes mellitus; Z90.49 Acquired absence of other specified parts of digestive tract; Z68.43 Body mass index [BMI] 50.0-59.9, adult
CPT/HCPCS: 36415; 71045; 74176; 78707; 80048; 80053; 80061; 81001; 82150; 83036; 83690; 83735; 83880; 84443; 84484; 85025; 85610; 85730; 86850; 86900; 86901; 93005; 96361; 96365; 96375; 97116; 97530; G0378; J0330; J0690; J0696; J1956; J2250; J2405; J2704; J3490